=== PATIENT | female | born 1995 | race Caucasian/White ===

== ENCOUNTER 2017-03-25 16:53 | Emergency (ER) | payer OTHER ==
--- NOTE | 2017-03-25 16:59 | PDOC ---
Rapid Medical Evaluation Medical Evaluation: 03/25/17 16:56 I have performed a brief in-person evaluation of this patient. The patient presents with a chief complaint of:Pelvic pain x months, worsened 3 days ago. Has implanon in place Pertinent physical exam findings:Stable and well noble w/ benign abd I have ordered the following:cbc/chem/ua/upreg/gc/chlam The patient will proceed to the ED for further evaluation. 03/25/17 17:00
[2017-03-25 17:00] VITALS: BP 126/75; PULSE 92; TEMP 98.5; BMI 27.3
[2017-03-25 17:35] LABS: BASOPHIL 1.2 % (0-2.0); EOSINOPHIL 1.1 % (0-4.5); MCHC 33.1 g/dl (32.0-36.0); MEAN CELL VOLUME 90.6 fl (80-96); MEAN PLT VOLUME 8.2 fl (7.5-11.1); NEUTROPHILS 41.1 % (42.8-82.8); PLATELET COUNT 251 K/MM3 (134-434); RDW 13.2 % (11.6-15.6); WHITE BLOOD COUNT 6.1 K/mm3 (4.0-10.0)
[2017-03-25 18:25] LABS: ALBUMIN 4.3 g/dl (3.4-5.0); ALK PHOS 53 U/L (45-117); ANION GAP 7 (8-16); BILIRUBIN,TOTAL 0.9 mg/dL (0.2-1.0); CALCIUM 9.1 mg/dL (8.5-10.1); CO2 27 mmol/L (21-32); CREATININE 0.8 mg/dL (0.55-1.02); GLUCOSE,RANDOM 87 mg/dL (74-106); SGOT/AST 9 U/L (15-37); SGPT/ALT 19 U/L (12-78); TOT PROT 7.9 g/dl (6.4-8.2)
[2017-03-25 18:37] LABS: PH,URINE 6.5 (5.0-8.0); URINE APPEARANCE CLEAR; URINE BILIRUBIN NEGATIVE (NEGATIVE); URINE BLOOD 1+ (NEGATIVE); URINE COLOR LT. YELLOW; URINE GLUCOSE (UA) NEGATIVE (NEGATIVE); URINE KETONE NEGATIVE (NEGATIVE); URINE NITRITE NEGATIVE (NEGATIVE); URINE PROTEIN NEGATIVE (NEGATIVE); URINE UROBILINOGEN 0.2 mg/dL (0.2-1.0)
[2017-03-25 19:01] LABS: URINE RBC 1 /hpf (0-3); URINE WBC 1 /hpf (3-5)
[2017-03-25 21:44] LABS: URINE LEUK ESTERASE Negative (NEGATIVE)
== END 2017-03-25 20:06 | disposition left against medical advice (07) ==
LOC: JER 16:53
DX: R10.2 Pelvic and perineal pain (principal)
CPT/HCPCS: 36415; 80053; 81003; 81015; 84703; 85025; 87491; 87591; 99281-25